=== PATIENT | female | born 2000 | race Caucasian/White ===

== ENCOUNTER 2019-06-16 17:46 | Emergency (ER) | payer OTHER ==
[~2019-06-16] VITALS: Ht 160 cm; Wt 83.0 kg
[2019-06-16 17:54] VITALS: Ht 160 cm; Wt 83.0 kg
[2019-06-16 19:18] VITALS: BP 109/63
== END 2019-06-16 19:18 | disposition home or self-care (01) ==
LOC: ED 17:46
DX: S39.91XA Unspecified injury of abdomen, initial encounter (principal); V43.52XA Car driver injured in collision with other type car in traffic accident, initial encounter; Y93.I9 Activity, other involving external motion; Y92.488 Other paved roadways as the place of occurrence of the external cause; Y99.8 Other external cause status